=== PATIENT | female | born 1985 | race Caucasian/White ===

== ENCOUNTER 2024-10-14 20:44 | Observation (INO) | payer BC, MEDICAID, SELFPAY ==
[2024-10-14 20:48] VITALS: BP 139/83; PULSE 63; RESP 18; TEMP 36.4; O2SAT 96; BMI 42.0
[2024-10-14 21:06] VITALS: BP 107/84; PULSE 60; RESP 16; O2SAT 100
[2024-10-14 21:13] LABS: Basophils # 0.1 10^3/uL (0.0-0.1); Basophils % 0.3 %; Eosinophils # 0.1 10^3/uL (0.0-0.8); Eosinophils % 0.5 %; Hematocrit 45.1 % (36-47); Lymphocytes # 0.9 10^3/uL (0.8-4.8); Mean Corpuscular HGB Conc 33.3 g/dL (30-55); Mean Corpuscular Hemoglobin 29.5 pg (27-33); Mean Corpuscular Volume 88.6 fl (85-98); Mean Platelet Volume 9.3 fL (7.4-10.4); Monocytes # 0.4 10^3/uL (0.2-0.9); Monocytes % 2.5 %; Neutrophils # 14.04 10^3/uL (1.8-7.7); Neutrophils % 90.4 %; Nucleated Red Blood Cells % 0 %; Platelet Count 304 10^3/cmm (157-399); Red Blood Count 5.09 10^6/uL (3.85-5.65); White Blood Count 15.52 10^3/uL (3.29-11.43)
[2024-10-14 21:18] LABS: Bilirubin Urine Negative (Negative); Blood Urine Negative (Negative); Glucose Urine UA 3+ (Normal); Ketones Urine Negative (Negative); Leukocyte Esterase Urine Negative (Negative); Nitrate Urine Negative (Negative); Protein Urine Negative (Negative); Specific Gravity, Urine 1.022 (1.005-1.030); Urine Appearance Clear (CLEAR); Urine Color Yellow (Yellow); pH Urine 6.5 (5-7)
[2024-10-14] MEDS: ondansetron 2 mg/ML SDV 2 mL 8 MG IVP (21:19)
[2024-10-14 21:20] LABS: HCG, Serum Qual Negative (Negative)
[2024-10-14] MEDS: sodium chloride 0.9% 1,000 ML 999 ML IV ×2 (21:20→22:46)
--- NOTE | 2024-10-14 21:22 | ED_ITS ---
HPI - Nausea/Vomiting/Diarrhea 2 General: Chief complaint: Nausea/Vomiting/Diarrhea Stated complaint: burn when pee n/v new med Time Seen by Provider: 10/14/24 21:02 Source: patient Mode of arrival: ambulatory Limitations: no limitations History of Present Illness: Patient is a 39-year-old female who presents emergency department plaint of weakness for the past day or so. Also states that she feels like her blood sugar was low, she recently started taking old prescription of Trulicity for weight loss and since then has got increasingly weak. Also states she thinks she is having UTI due to dysuria and dark-colored urine. States that she is thrown up 3 times and is nauseous at this time. Vitals are within normal limits. Denying any pain, shortness of breath, or other symptoms at this time. She has no other pertinent past medical history to report. She also notes that over the past few days she has not been eating as much. 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 MD elicited complaint: nausea and vomiting Onset (ago): day(s) Associated nausea: Yes Associated abdominal pain: No Exacerbating factors: none Relieving factors: none Context: other (Recently took old prescription of Trulicity) Associated symtoms: Reports dysuria, fatigue and nausea; Denies chest pain, diaphoresis, dizziness, headache(s) or palpitations Related Data Allergies Allergy/AdvReac Type Severity Reaction Status Date / Time No Known Allergies Allergy Verified 10/14/24 20:54 Review of Systems 2 General: Reports: 10 or more systems reviewed and unremarkable except in HPI and below Const: Reports: change in appetite and fatigue; Denies: fever(s), chills, change in weight or diaphoresis ENMT: Denies: throat pain or hoarseness Card: Denies: chest pain, palpitations or lightheadedness Resp: Denies: dyspnea, productive cough or wheezing GI: Reports: nausea and vomiting; Denies: abdominal pain or diarrhea : Reports: dysuria; Denies: flank pain or difficulty voiding Musc: Denies: neck pain or back pain Skin/Breast: Denies: rash or new lesions Neuro: Denies: headache(s) or dizziness PENDING SALE TO [facility] ED 2 Female Reproductive History: Date of last menstrual period: 10/10/24 Physical Exam 2 Const: COMMON NORMALS: no acute distress, patient oriented x3, no limitations, healthy appearing, alert and well nourished GENERAL APPEARANCE: cooperative ORIENTATION/CONSCIOUSNESS: Yes awake HENMT: COMMON NORMALS: normocephalic, atraumatic, hearing grossly normal bilaterally, external ears normal, Normal external nose present, Normal nasal mucous membranes and turbinates present and moist oral mucous membranes HEAD & SCALP: normocephalic and atraumatic NOSE: Normal external nose present and Normal nasal mucous membranes and turbinates present EXTERNAL EAR: Yes external ears normal Eye: COMMON NORMALS: Equal, round and reactive pupils present, EOMs intact bilaterally, conjunctivae normal and normal visual saenz by confrontation C ONJUNCTIVA: Yes conjunctivae normal PUPIL: Yes Equal, round and reactive pupils present Neck/C-Spine: COMMON NORMALS: full ROM, supple, no meningeal signs and no JVD Resp: COMMON NORMALS: normal respiratory effort, No retractions, No use of accessory muscles and clear to auscultation bilaterally AUSCULTATION: clear to auscultation bilaterally, no crackles, no rales, no rhonchi and no wheezes Cardio: COMMON NORMALS: no JVD, regular rate, regular rhythm, S1 normal heart sound present, S2 normal heart sound present, No gallops present (Cardio), No clicks present (Cardio), No murmurs present (Cardio), No rub (Cardio) and Peripheral pulses 2+ throughout RATE: regular rate RHYTHM: regular rhythm HEART SOUNDS: S1 normal heart sound present and S2 normal heart sound present PERIPHERAL PULSES: Peripheral pulses 2+ throughout GI: COMMON NORMALS: Normal to inspection, nondistended, normoactive bowel sounds present, Soft to palpation, No hepatosplenomegaly present and no masses AUSCULTATION: Yes normoactive bowel sounds PALPATION: Yes Soft to palpation, Yes Tenderness to palpation present (GI) Details: RLQ, No Guarding due to palpation present (GI), No Rigid due to palpation and Yes No hepatosplenomegaly present RECTAL EXAM: deferred Extremity: COMMON NORMALS: normal to inspection and full ROM Neuro: COMMON NORMALS: patient oriented x3, moves all extremities, no focal motor deficits and no sensory deficits noted SENSORIUM/ORIENTATION: Yes alert MENINGEAL SIGNS: Yes no meningeal signs Skin: COMMON NORMALS: no rashes or lesions noted GENERAL SKIN EXAM: no rashes or lesions noted Course 2 Vital Signs: Vital signs: Vital Signs Temperature 97.6 F 10/14/24 20:48 Pulse Rate 69 10/14/24 22:30 Respiratory Rate 16 10/14/24 22:30 Blood Pressure 124/83 10/14/24 22:30 Pulse Oximetry 99 10/14/24 22:30 Oxygen Delivery Me thod Room Air 10/14/24 20:48 MDM - Nausea/Vomiting/Diarrhea Medical Decision Making This patient presented stating that she was feeling weak over the past couple of days and feeling she had a UTI. Her urinalysis did not show any signs of infection. On exam, there is nothing of remark and specifically there is no abdominal tenderness to palpation. With her history she did not report any vomiting or diarrhea of any kind, just stating that she felt crummy. Of note she did recently take an old Trulicity just prior to her symptom onset. On lab work here there was signs of leukocytosis with left shift. She was not . Metabolic panel was unremarkable. She notes minimal improvement after Zofran and fluids here. Her viral swab was also negative. I rechecked the patient, she is requesting another liter of fluids and we decided to go ahead and get abdominal pelvis CT that did show signs of an acute appendicitis. Did reexamine her and with deeper palpation she was tender in the right lower quadrant. I spoke with on-call general surgeon, Dr. Cantu, who agrees to accept the patient under his care will see them tomorrow. He is recommending Zosyn and Toradol at this time. Also given patient Reglan for nausea and informed her of plan, all other questions and concerns addressed. Lab Data 10/14/24 20:58 10/14/24 20:58 Radiology Impressions Abdomen/Pelvis CT 10/14/24 22:39 IMPRESSION: 1. Dilated fluid-filled proximal appendix. This could represent a mucocele and/or acute appendicitis. No evidence of rupture or pseudomyxoma peritonei. ADDENDUM: 10/14/24 [id number] THIS REPORT CONTAINS FINDINGS THAT MAY BE CRITICAL TO PATIENT CARE. The findings were verbally communicated via telephone conference with DOE FELIPE at 11:24 PM PLANISHING HAMMER OPERATOR on 10/14/2024. The findings were acknowledged and understood. Laboratory Results WBC 15.52 10^3/uL (3.29-11.43) H 10/14/24 20:58 RBC 5.09 10^6/uL (3.85-5.65) 10/14/24 20:58 Hgb 15.00 g/dL (11.27-16.99) 10/14/24 20:58 Hct 45.1 % (36-47) 10/14/24 20:58 MCV 88.6 fl (85-98) 10/14/24 20:58 MCH 29.5 pg (27-33) 10/14/24 20:58 MCHC 33.3 g/dL (30-55) 10/14/24 20:58 RDW 12.0 % (12.1-15.1) L 10/14/24 20:58 Plt Count 304 10^3/cmm (157-399) 10/14/24 20:58 MPV 9.3 fL (7.4-10.4) 10/14/24 20:58 Neut % (Auto) 90.4 % 10/14/24 20:58 Lymph % (Auto) 6.0 % 10/14/24 20:58 Mclennan % (Auto) 2.5 % 10/14/24 20:58 Eos % (Auto) 0.5 % 10/14/24 20:58 Baso % (Auto) 0.3 % 10/14/24 20:58 Neut # (Auto) 14.04 10^3/uL (1.8-7.7) H 10/14/24 20:58 Lymph # (Auto) 0.9 10^3/uL (0.8-4.8) 10/14/24 20:58 Mclennan # (Auto) 0.4 10^3/uL (0.2-0.9) 10/14/24 20:58 Eos # (Auto) 0.1 10^3/uL (0.0-0.8) 10/14/24 20:58 Baso # (Auto) 0.1 10^3/uL (0.0-0.1) 10/14/24 20:58 Nucleated RBC % (auto) 0 % 10/14/24:58 Nucleated RBCs # 0.0 /100WBC 10/14/24 20:58 Sodium 137 mmol/L (136-145) 10/14/24 20:58 Potassium 4.0 mmol/L (3.5-5.1) 10/14/24 20:58 Chloride 101 mmol/L (98-107) 10/14/24 20:58 Carbon Dioxide 24 mmol/L (22-29) 10/14/24 20:58 Anion Gap 16.0 (5-19) 10/14/24 20:58 BUN 13 mg/dL (6-20) 10/14/24 20:58 Creatinine 0.7 mg/dL (0.5-0.9) 10/14/24 20:58 GFR Calculation 94.2 mL/min (90-130) 10/14/24 20:58 Glucose 140 mg/dL (65-115) H 10/14/24 20:58 Calculated Osmolality 286 mOsm/kg (285-295) 10/14/24 20:58 Calcium 9.3 mg/dL (8.5-10.5) 10/14/24 20:58 Total Bilirubin 0.4 mg/dL (0.15-1.2) 10/14/24 20:58 AST 15 U/L (0-32) 10/14/24 20:58 ALT 17 U/L (0-33) 10/14/24 20:58 Alkaline Phosphatase 95 U/L (35-105) 10/14/24 20:58 Total Protein 7.1 g/dL (6.6-8.7) 10/14/24 20:58 Albumin 4.3 g/dL (3.5-5.2) 10/14/24 20:58 Globulin 2.8 g/dL (1.3-4.6) 10/14/24 20:58 Lipase 16 U/L (13-60) 10/14/24 20:58 HCG, Qual Negative (Negative) 10/14/24 20:58 Urine Color Yellow (Yellow) 10/14/24 21:15 Urine Appearance Clear (CLEAR) 10/14/24 21:15 Urine pH 6.5 (5-7) 10/14/24 21:15 Ur Specific [place] 1.022 (1.005-1.030) 10/14/24 21:15 Urine Protein Negative (Negative) 10/14/24 21:15 Urine Glucose (UA) 3+ (Normal) H 10/14/24 21:15 Urine Ketones Negative (Negative) 10/14/24 21:15 Urine Blood Negative (Negative) 10/14/24 21:15 Urine Nitrate Negative (Negative) 10/14/24 21:15 Urine Bilirubin Negative (Negative) 10/14/24 21:15 Urine Urobilinogen 1.0 mg/dL (Negative) 10/14/24 21:15 Ur Leukocyte Esterase Negative (Negative) 10/14/24 21:15 Urine RBC 0-4 /hpf (0-2) H 10/14/24 21:15 Urine WBC 0-4 /hpf (0-5) H 10/14/24 21:15 Ur Squamous Epith Cells 5-10 /hpf (0-5) H 10/14/24 21:15 Amorphous Sediment Not Reportable 10/14/24 21:15 Urine Bacteria Trace /hpf (NONE) 10/14/24 21:15 Influenza A (PCR) Negative (Negative) 10/14/24 21:35 Influenza Type B (PCR) Negative (Negative) 10/14/24 21:35 RSV (PCR) Negative (Negative) 10/14/24 21:35 SARS-CoV-2 (PCR) Negative (Negative) 10/14/24 21:35 No radiology studies performed this visit Discharge Plan Discharge Patient Disposition: Admitted As Inpatient Clinical Impression: Acute appendicitis Qualifiers: Acute appendicitis type: unspecified acute appendicitis type Qualified Code(s): K35.80 - Unspecified acute appendicitis Condition: Stable Coding Level of Care Code 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
[2024-10-14 21:26] LABS: Alanine Aminotransferase 17 U/L (0-33); Albumin Level 4.3 g/dL (3.5-5.2); Alkaline Phosphatase 95 U/L (35-105); Aspartate Amino Transferase 15 U/L (0-32); Blood Urea Nitrogen 13 mg/dL (6-20); Calcium 9.3 mg/dL (8.5-10.5); Carbon Dioxide 24 mmol/L (22-29); Chloride 101 mmol/L (98-107); Creatinine Clr Calc Pharmacy 115.1852; Globulin 2.8 g/dL (1.3-4.6); Glomerular Filtration Rate 94.2 mL/min (90-130); Glucose 140 mg/dL (65-115); Lipase 16 U/L (13-60); Osmolality Calculated 286 mOsm/kg (285-295); Sodium 137 mmol/L (136-145); Total Bilirubin 0.4 mg/dL (0.15-1.2); Total Protein 7.1 g/dL (6.6-8.7)
[2024-10-14 21:45] LABS: Add Urine Microscopic? YES; Bacteria Urine TRACE /hpf; RBC Urine 0-4 /hpf (0-2); UA Manual Slide Review YES; WBC Urine 0-4 /hpf (0-5)
[2024-10-14 22:16] LABS: Influenza A NEGATIVE (Negative); Influenza B NEGATIVE (Negative); Respiratory Syncytial Virus Ce NEGATIVE (Negative); SARS-CoV-2 PCR NEGATIVE (Negative)
[2024-10-14 22:30] VITALS: BP 124/83; PULSE 69; RESP 16; O2SAT 99
--- NOTE | 2024-10-14 22:39 | CTR_ITS ---
PROCEDURE INFORMATION: Exam: CT Abdomen And Pelvis With Contrast Exam date and time: 10/14/2024 10:51 PM Age: 39 years old Clinical indication: Nausea and vomiting; Additional info: Weakness, leukocytosis TECHNIQUE: Imaging protocol: Computed tomography of the abdomen and pelvis with contrast. Radiation optimization: All CT scans at this facility use at least one of these dose optimization techniques: automated exposure control; mA and/or kV adjustment per patient size (includes targeted exams where dose is matched to clinical indication); or iterative reconstruction. Contrast material: OMNI 350; Contrast volume: 100 ml; Contrast route: INTRAVENOUS (IV); COMPARISON: US OB >= 14 weeks fetus [id number] 11/04/2017 9:40 AM RADIATION DOSE METRICS: Total DLP (mGy-cm): 863.56 FINDINGS: Liver: Normal. No mass. Gallbladder and biliary ducts: Normal. No calcified stones. No ductal dilation. Pancreas: Normal. No ductal dilation. Spleen: Normal. No splenomegaly. Adrenal glands: Normal. No mass. Kidneys and ureters: Normal. No hydronephrosis. Stomach and bowel: Unremarkable. No obstruction. No mucosal thickening. Appendix: Dilated fluid-filled appendiceal base measuring up to 2.2 cm diameter. The mid appendix measures 9 mm and the distal appendix measures 2 mm. No periappendiceal fat stranding. Intraperitoneal space: Unremarkable. No free air. No significant fluid collection. Vasculature: Unremarkable. No abdominal aortic aneurysm. Lymph nodes: Unremarkable. No enlarged lymph nodes. Urinary bladder: Unremarkable as visualized. Reproductive: Unremarkable as visualized. Bones/joints: Unremarkable. No acute fracture. Soft tissues: Bilateral breast implants. Tiny fat containing umbilical hernia. CT/CT abdomen pelvis w con* [id number] IMPRESSION: 1. Dilated fluid-filled proximal appendix. This could represent a mucocele and/or acute appendicitis. No evidence of rupture or pseudomyxoma peritonei.
[2024-10-14] MEDS: iohexol 350 mg/mL 500 mL Btl (per mL) IV (22:57)
[2024-10-14] MEDS: metoclopramide 5 mg/mL SDV 2 mL 10 MG IVP (23:35)
[2024-10-14] MEDS: piperacillin-tazobactam 3.375 GM in sodium chloride 0.9% (plus) 50 ML IV (23:35)
[2024-10-14] MEDS: ketorolac 30 mg/mL INJ IVP (23:35)
[2024-10-14 23:39] VITALS: PULSE 72; RESP 18; O2SAT 97
[2024-10-15] VITALS (20 sets, daily range): BP systolic 110–123; BP diastolic 52–90; PULSE 68–94; RESP 14–19; TEMP 36.3–37.3; O2SAT 92–98; BMI 42.5
[2024-10-15 00:01] LABS: Glucose Point of Care 61 mg/dL (70-110)
[2024-10-15] MEDS: LORazepam 2 mg/mL INJ 1 mL 1 MG IVP (01:11)
[2024-10-15] MEDS: morphine 4 mg/mL SDV 1 mL IVP (01:12)
[2024-10-15 06:42] LABS: Glucose Point of Care 65 mg/dL (70-110)
[2024-10-15] MEDS: ketorolac 30 mg/mL INJ 15 MG IVP (06:42)
--- NOTE | 2024-10-15 06:47 | P.HP_ITS ---
Providers/Chief Complaint 2 Admitting Physician: Roberth Day MD Primary Care Provider: Shane Chase MD Chief Complaint: burn when pee n/v new med History of Present Illness Bernadine Loving is a 39 year old female Who presents with malaise, nausea vomiting right lower quadrant pain over the last 48 hours. Workup done in the ER show evidence of a white count of 15, while she did not have severe abdominal pain due to patient's symptoms a CT scan was done and shows evidence of possible acute appendicitis and an associated possible appendiceal mucocele. I was consulted for this finding. Review of Systems 2 General: Reports: 10 or more systems reviewed and unremarkable except in HPI and below Medications/Allergies Allergies Allergy/AdvReac Type Severity Reaction Status Date / Time No Known Allergies Allergy Verified 10/14/24 20:54 PFSH Acute 2 Female Reproductive History: Date of last menstrual period: 10/10/24 Vitals/I&O/Wt Last Vital Signs Temp 97.6 F 10/14/24 20:48 Pulse 82 10/15/24 04:00 Resp 14 10/15/24 04:00 BP 118/79 10/15/24 01:58 Pulse Ox 96 10/15/24 04:00 O2 Del Method Room Air 10/14/24 20:48 10/14/24 10/14/24 10/15/24 14:59 22:59 06:59 Intake Total 1000 / 1000 1050 / 2050 Balance 1000 / 1000 1050 / 2050 Weight last 48 hrs Weight 215 lb Physical Exam 2 Narrative: General : Patient is well developed , no acute distress, oriented x3 Head : Normal cephalic, a-traumatic. Nose : Mucous membranes are without erythema. Lungs : Equal chest rise bilaterally, no use of accessory muscles, trachea is midline. CV : Rate and rhythm are normal. Abdomen : Soft, There is mild tenderness in the right lower quadrant, no peritoneal signs at the moment Extremities : No edema. Upper extremities are normal bilaterally. Back : non-tender to palpation, no CVA tenderness. Data 10/14/24 20:58 10/14/24 20:58 A&P Assessment and plan (1) Acute appendicitis: Qualifiers: Acute appendicitis type: unspecified acute appendicitis type Qualified Code(s): K35.80 - Unspecified acute appendicitis Plan After complete history, physical examination and review of all available clinical data the following is my assessment. Patient presentation is likely consistent with acute appendicitis with a possible associated appendiceal mucocele. I have discussed with the patient the possibility of surgery. I have offered a laparoscopic, possible open appendectomy. I have explained that in her case there is also a chance that we need to proceed with ileocecectomy if the mucocele is too close to the base of the appendix. I discussed all recent benefits of the procedure procedure including the risks of bleeding, infection, hernia formation, need to conversion to open procedure, injury to surrounding structures including the small bowel mesenteric vessels: Ureter and blood vessels in the pelvis. I explained that there is a reasonable hernia that will be increased if we do an open procedure. In the case of ileocecectomy there is a risk of anastomotic leak. I have also explained the risks of intra-abdominal abscess and the risks of proliferation of mucus in the case of perforation of the mucocele. Patient shows understanding she agrees to proceed. Case will be scheduled for the first available OR time. In the interim patient will receive IV antibiotics IV fluids and pain control she will remain n.p.o. until the time of surgery. PDMP PDMP Reviewed: Not Reviewed Attestations 2 Medical Necessity Statement*: Patient will likely require 24 hours of hospital stay. Coding Level of Care Code Acute Code for [facility] Diagnoses Acute appendicitis K35.80 Acute appendicitis type: unspecified acute appendicitis type
[2024-10-15] MEDS: dextrose 5%-sod chloride 0.45% 1,000 ML 75 ML IV (07:03)
[2024-10-15 07:25] LABS: Basophils # 0.1 10^3/uL (0.0-0.1); Basophils % 0.4 %; Eosinophils # 0.1 10^3/uL (0.0-0.8); Eosinophils % 0.8 %; Hematocrit 41.9 % (36-47); Lymphocytes # 2.1 10^3/uL (0.8-4.8); Mean Corpuscular HGB Conc 32.9 g/dL (30-55); Mean Corpuscular Hemoglobin 29.7 pg (27-33); Mean Corpuscular Volume 90.3 fl (85-98); Mean Platelet Volume 9.3 fL (7.4-10.4); Monocytes # 0.7 10^3/uL (0.2-0.9); Monocytes % 5.9 %; Neutrophils # 8.78 10^3/uL (1.8-7.7); Neutrophils % 74.6 %; Nucleated Red Blood Cells % 0 %; Platelet Count 274 10^3/cmm (157-399); Red Blood Count 4.64 10^6/uL (3.85-5.65); Red Cell Distribution Width 12.2 % (12.1-15.1); White Blood Count 11.77 10^3/uL (3.29-11.43)
[2024-10-15] MEDS: piperacillin-tazobactam 3.375 GM in sodium chloride 0.9% (plus) 50 ML IV ×2 (09:36→17:10)
[2024-10-15] MEDS: scopolamine 1 mg PATCH 1 PATCH TRANSDERMA (13:31)
--- NOTE | 2024-10-15 13:46 | ANES.PREANE2 ---
Pre-Anesthetic Assessment Height/Weight: Height 5 ft Weight 217 lb 8 oz Temp Pulse Resp BP Pulse Ox O2 Del Method 97.4 F L 87 18 113/90 97 Room Air 10/15/24 12:32 10/15/24 12:32 10/15/24 12:32 10/15/24 12:32 10/15/24 12:32 10/15/24 12:32 Preop Diagnosis: acute appendicitis Operation Date: 10/15/24 13:00 Proposed Procedures p Laparoscopic Appendectomy(Not Applicable) - Abdulaziz Cantu MD Was Beta [place] taken within 24 hours: N/A Was Clonidine taken within 24 hours: N/A Last intake: Intake Last Liquid Date 10/15/24 Last Liquid Time 01:00 Last Solid Date 10/13/24 Last Solid Time 18:00 Social Tobacco and No alcohol Exam alert, oriented x 3, clear to auscultation bilaterally and regular rate & rhythm Airway Submandibular: within normal limits Cervical ROM: within normal limits Mallampati: Class II Dentition: full Comments: Comments: Chipped tooth on the back right top molar Anesthetic Plan ASA status: 3 Anesthesia: General Other: No prior issues with anesthesia NPO since yesterday ADHD on Adderall Patient takes chronic Trulicity for weight loss. Last taken 4 days ago Vapes nicotine and marijuana Denies any cardiac issues Labs reviewed and acceptable for procedure METs greater than 4 Plan for GETA with RSI Medications/Allergies Home Medications ?Medication ?Instructions ?Recorded ?Confirmed ?Last Taken ?Type dextroamphetamine-amphetamine ER 1 cap PO DAILY 10/15/24 10/15/24 Unknown History 25 mg 24hr capsule,extend release escitalopram oxalate 10 mg tablet 10 mg PO DAILY 10/15/24 10/15/24 Unknown History Allergies Allergy/AdvReac Type Severity Reaction Status Date / Time No Known Allergies Allergy Verified 10/14/24 20:54 Current Medications Generic Name Dose Route Start Last Admin Trade Name Freq PRN Reason Stop Dose Admin Piperacillin Sod/Tazobactam 50 mls @ 12.5 mls/hr 10/15/24 08:00 10/15/24 13:14 Sod 3.375 gm/ Sodium Chloride IV Infused Q8H SAM Infusion Protocol Dextrose/Sodium Chloride 1,000 mls @ 75 mls/hr 10/15/24 06:45 10/15/24 07:03 Dextrose 5%-Sod Chloride 0.45% IV 75 mls/hr .[id number] SAM Administration Ketorolac Tromethamine 15 mg 10/15/24 06:00 10/15/24 12:14 Ketorolac 30 Mg/Ml Inj IVP 10/20/24 05:59 Not Given Q6H SAM PFSH Anesthesia Female Reproductive History Date of last menstrual period: 10/10/24 Data Anesthesia 10/15/24 07:19 10/14/24 20:58 Short CBC 10/14/24 10/15/24 Range/Units 20:58 07:19 WBC 15.52 H 11.77 H (3.29-11.43) 10^3/uL Hgb 15.00 13.80 (11.27-16.99) g/dL Hct 45.1 41.9 (36-47) % MCV 88.6 90.3 (85-98) fl Plt Count 304 274 (157-399) 10^3/cmm Neut % (Auto) 90.4 74.6 % Neut # (Auto) 14.04 H 8.78 H (1.8-7.7) 10^3/uL BMP 10/14/24 20:58 Sodium 137 Potassium 4.0 Chloride 101 Carbon Dioxide 24 BUN 13 Creatinine 0.7 Glucose 140 H Calcium 9.3 Liver Function 10/14/24 Range/Units 20:58 Total Bilirubin 0.4 (0.15-1.2) mg/dL AST 15 (0-32) U/L ALT 17 (0-33) U/L Alkaline Phosphatase 95 (35-105) U/L Albumin 4.3 (3.5-5.2) g/dL Urine 10/14/24 Range/Units 21:15 Urine Color Yellow (Yellow) Urine Appearance Clear (CLEAR) Urine pH 6.5 (5-7) Ur Specific [place] 1.022 (1.005-1.030) Urine Protein Negative (Negative) Urine Glucose (UA) 3+ H (Normal) Urine Ketones Negative (Negative) Urine Nitrate Negative (Negative) Urine Bilirubin Negative (Negative) Ur Leukocyte Esterase Negative (Negative) Urine RBC 0-4 H (0-2) /hpf Urine WBC 0-4 H (0-5) /hpf COVID Results 10/14/24 21:35 SARS-CoV-2 (PCR) Negative Cardiac Studies: No Data to Display
[2024-10-15] MEDS: BUPivacaine 0.25% INJ 10 mL INJECTION (14:52)
[2024-10-15] MEDS: lidocaine-epi 1% 20 mL INJ INJECTION (14:53)
--- NOTE | 2024-10-15 15:29 | PM.OP ---
Operative Report Date of procedure: October 15, 2024 Pre-op diagnosis: Acute appendicitis Post-op diagnosis: Same Post-op findings: There were significant adhesions from the omentum to the anterior abdominal wall occupying the lower abdomen at the level of the midline all the way up to the umbilicus. Appendix was mildly distended near the base, with no obvious evidence of mucocele on visual examination. I was able to dissect all the way down to the base of the appendix and transected appendix directly where it joined to the cecum. Procedure done: Laparoscopic appendectomy, laparoscopic lysis of additions Specimens removed/disposition: Appendix Surgeon: Abdulaziz Cantu MD Charging Operator: JESE OR STaff Estimated blood loss: 5cc Brief History: This is a 39-year-old female who presented to the hospital with right lower quadrant abdominal pain nausea vomiting awake and a 15. CT scan was done in the ER showing evidence of acute appendicitis and possible appendiceal mucocele. After discussion of all recent benefits documented my preop note we decided to proceed to the OR. Procedure: Patient was brought into the OR, she was placed in the supine position. General anesthesia was given. The abdomen was prepped and draped in the usual sterile fashion. Timeout was conducted. The abdomen was accessed via left upper quadrant 5 mm Optiview trocar, initial laparoscopy showed no evidence of visceral injury during entry. Upon immediate entry there was evidence of extensive adhesions of the omentum to the anterior abdominal wall starting at the level of the umbilicus and going all the way down to the pelvis, this was obscuring the surgical site and therefore we decided to proceed with lysis of additions. I placed an extra trocar in the right upper quadrant, I then used the LigaSure to carefully lyse the adhesions from the anterior abdominal wall. With careful dissection I was able to take down all the adhesions. I then placed 2 mm trocar in the infraumbilical location under direct visualization and the next 5 mm trocar in the suprapubic region under direct visualization. The patient was placed in a steep Trendelenburg position with the left side down. The appendix was localized in the right lower quadrant. Very minimal inflammation of the appendix was noted. There is no visual evidence of the possible mucocele described in imaging, the appendix was slightly dilated near the base but other than that appeared normal. I proceeded to take down the mesoappendix carefully with LigaSure I did this from the tip of the appendix all the way down to the base of the appendix. I then proceeded to clear the base of the appendix to allow for stapling ensuring that no residual appendix is left behind. The base appeared healthy. I then proceeded to transect the appendix at the base using a 45 mm blue load Endo SHAMA stapler, once the appendix was transected there was no evidence of bleeding from the staple line, the staple line was completely flush with the cecum, indicating that the complete appendix had been removed. The specimen was retrieved with an Endo Catch bag and removed from the abdomen via the infraumbilical trocar site. Hemostasis was verified. The omentum was pulled into the right lower quadrant to cover the staple line. I then remove the infraumbilical trocar site and closed the trocar site with a #0 Vicryl in a Dimitry-Bonny suture passer under direct visualization. The suprapubic and right upper quadrant trocar was also removed under direct visualization. The left upper quadrant trocar was used to evacuate the pneumoperitoneum and subsequently removed. At the end of the procedure all counts were correct. The patient tolerated well the procedure was transferred to PACU in stable condition.
[2024-10-15] MEDS: fentaNYL 50 mcg/mL INJ 2mL IVP (15:53)
[2024-10-15] MEDS: oxyCODONE 5 mg IR Tab/Cap PO (17:24)
--- NOTE | 2024-10-15 20:52 | PC.NURSE ---
Pt left with , discharge instructions given, questions answered. IV removed.
[2024-10-16 09:29] LABS: Glucose Point of Care 106 mg/dL (70-110)
== END 2024-10-15 20:53 | disposition home or self-care (01) ==
LOC: ER 10-15 00:08 → ER IP 10-15 04:22 → MEDSURG 10-15 05:39 → ER IP 10-15 13:11
PROVIDERS: Emergency Medicine; Admitting Provider Internal Medicine; Emergency Provider Physician Assistant; PCP Family Medicine; Visit Provider Surgery
PROC: 0DTJ4ZZ Resection of Appendix, Percutaneous Endoscopic Approach (ICD-10-PCS; CPT 44970; principal; 2024-10-15 13:00)
PROC: (CPT 44970; 2024-10-15 13:00)
DX: K35.80 Unspecified acute appendicitis (principal); K66.0 Peritoneal adhesions (postprocedural) (postinfection); Z11.52 Encounter for screening for COVID-19
CPT/HCPCS: 44970; 36415; 36416; 74177; 80053; 81001; 82962; 83690; 84703; 85025; 87637; 88304; 96365; 96375; 96376; 99285; A4216; G0378; J1100; J1171; J1885; J2060; J2250; J2270; J2405; J2543; J2765; J3010; J3490; J7030; J7799

== ENCOUNTER 2024-10-24 12:43 | Emergency (ER) | payer MEDICAID, SELFPAY ==
[2024-10-24 12:51] VITALS: BP 135/76; PULSE 66; RESP 17; TEMP 36.5; O2SAT 97; BMI 42.3
--- NOTE | 2024-10-24 13:01 | CTR_ITS ---
PROCEDURE INFORMATION: Exam: CT Head Without Contrast Exam date and time: 10/24/2024 1:24 PM Age: 39 years old Clinical indication: Pain; Headache; Additional info: Headache x 3 hours TECHNIQUE: Imaging protocol: Computed tomography of the head without contrast. Axial, coronal and sagittal reformatted images were created and reviewed. Radiation optimization: All CT scans at this facility use at least one of these dose optimization techniques: automated exposure control; mA and/or kV adjustment per patient size (includes targeted exams where dose is matched to clinical indication); or iterative reconstruction. COMPARISON: No relevant prior studies available. RADIATION DOSE METRICS: Total DLP (mGy-cm): 1009.68 FINDINGS: Brain: No CT evidence of acute intracranial hemorrhage or acute territorial infarction. No significant mass effect or midline shift. Basal cisterns patent. Cerebral ventricles: Normal in size and configuration. Paranasal sinuses: Unremarkable. No fluid levels. Mastoid air cells: Grossly unremarkable. Bones: Unremarkable. No acute fracture. Soft tissues: Grossly unremarkable. CT/CT head wo con* [id number] IMPRESSION: No CT evidence of acute intracranial pathology.
--- NOTE | 2024-10-24 13:03 | W.ED.HA ---
HPI - Headache General: Chief Complaint: Headache Stated Complaint: n/v, 9 days post op Time Seen by Provider: 10/24/24 12:48 Source: patient History of Present Illness: Patient is a nontoxic 39-year-old female who presents to the ER with complaints of a headache. She states her headache is isolated primarily to the left side of her head behind her left eye. She states she woke up this morning and thought she may have had a very mild headache however symptoms became acutely worse at around 11:30 AM this morning just about an hour and 1/2 to 2 hours before arrival. She has had some nausea and vomiting with photophobia. No exacerbating or alleviating factors. She has had headaches in the past but states this feels worse than her usual headache. No fevers or chills. She is a little over 1 week postop from an appendectomy but denies any complications or problems associated with that. No neck pain or stiffness. MD elicited complaint: headache Onset (ago): hour(s) (3) Onset description: gradually Location: left Severity: moderate Quality & Timing: throbbing and constant Relieving factors: nothing Associated symptoms: Reports nausea and vomiting; Deny chest pain, fever(s) or rash Related Data Home Medications ?Medication ?Instructions ?Recorded ?Confirmed dextroamphetamine-amphetamine ER 1 cap PO DAILY 10/15/24 10/24/24 25 mg 24hr capsule,extend release escitalopram oxalate 10 mg tablet 10 mg PO DAILY 10/15/24 10/24/24 Previous Rx's ?Medication ?Instructions ?Recorded polyethylene glycol 3350 17 gram 17 g PO DAILY 14 days #14 ea 10/15/24 oral powder packet (Miralax) Allergies Allergy/AdvReac Type Severity Reaction Status Date / Time No Known Allergies Allergy Verified 10/14/24 20:54 Review of Systems Const: Denies: fever(s) or chills Card: Denies: chest pain Resp: Denies: dyspnea GI: Reports: nausea and vomiting; Denies: abdominal pain Skin/Breast: Denies: rash Neuro: Reports: headache(s) Physical Exam Const: COMMON NORMALS: no acute distress, average body habitus, alert and well nourished GENERAL APPEARANCE: cooperative ORIENTATION/CONSCIOUSNESS: Yes awake HENMT: COMMON NORMALS: normocephalic and atraumatic HEAD & SCALP: normocephalic and atraumatic Eye: COMMON NORMALS: conjunctivae normal CONJUNCTIVA: Yes conjunctivae normal Neck/C-Spine: GENERAL: Yes normal visual inspection Resp: COMMON NORMALS: normal respiratory effort, No retractions and No use of accessory muscles Cardio: COMMON NORMALS: regular rhythm and Peripheral pulses 2+ throughout RHYTHM: regular rhythm PERIPHERAL PULSES: Peripheral pulses 2+ throughout GI: COMMON NORMALS: Soft to palpation and non-tender PALPATION: Yes Soft to palpation OTHER: Abdomen soft and nondistended. Incisions are clean dry and intact. No tenderness. No guarding or rebound. Extremity: COMMON NORMALS: full ROM and no pedal edema Neuro: COMMON NORMALS: no focal motor deficits SENSORIUM/ORIENTATION: Yes alert Skin: COMMON NORMALS: no rashes or lesions noted GENERAL SKIN EXAM: no rashes or lesions noted Course Vital Signs: Vital signs: Vital Signs Temperature 97.7 F 10/24/24 12:51 Pulse Rate 66 10/24/24 12:51 Respiratory Rate 17 10/24/24 12:51 Blood Pressure 135/76 10/24/24 12:51 Pulse Oximetry 97 10/24/24 12:51 Oxygen Delivery Me thod Room Air 10/24/24 12:51 MDM - Headache Medical Decision Making Nontoxic 39-year-old female who presents with a headache that seems consistent with a migraine headache starting this morning. Head CT was obtained and is negative for acute findings. No focal neurologic deficits. Patient was given a liter of IV fluids, Compazine and Benadryl and a dose of Toradol. On recheck she states she feels significantly better and is eager for discharge home. Patient was updated on findings and plan for discharge and is comfortable with such. Differential Diagnosis Likely migraine, tension headache and headache Lab Data Radiology Impressions Head CT 10/24/24 13:01 IMPRESSION: No CT evidence of acute intracranial pathology. All radiology interpretation(s) finalized by discharge Discharge Plan Discharge Patient Disposition: Home Clinical Impression: Headache Condition: Stable Prescriptions: No Action dextroamphetamine-amphetamine 25 mg capsule,extended release 24hr 1 cap PO DAILY escitalopram oxalate 10 mg tablet 10 mg PO DAILY polyethylene glycol 3350 [Miralax] 17 gram powder in packet 17 g PO DAILY 14 Days Qty: 14 0RF Discharge Orders: Discharge ED (Routine); Ordered 10/24/24 Ordered By: Kirit Siddiqui Referrals: Shane Chase MD [Primary Care Provider] - Discharge Activity: Increase activity as tolerated Patient Instructions: Acute Headache (DC), Opioid Safety, Pain Management Activity Restrictions/Additional Instructions: Drink plenty of fluids to stay hydrated. Follow-up with your PCP for recheck. Return to the ER for any new or worsening symptoms or any other concerns. Print Language: Algerian Coding Level of Care Code ED [employer] for [employer]
[2024-10-24] MEDS: sodium chloride 0.9% 1,000 ML 999 ML IV (13:17)
[2024-10-24] MEDS: prochlorperazine 10 mg/2 mL Inj IVP (13:19)
[2024-10-24] MEDS: ketorolac 30 mg/mL INJ 15 MG IVP (13:20)
[2024-10-24] MEDS: diphenhydrAMINE 50 mg/mL SDV 1mL 25 MG IVP (13:20)
== END 2024-10-24 14:50 | disposition home or self-care (01) ==
PROVIDERS: Emergency Provider Student in an Organized Health Care Education/Training Program; PCP Family Medicine
DX: R51.9 Headache, unspecified (principal); Z98.890 Other specified postprocedural states
CPT/HCPCS: 36415; 70450; 96361; 96374; 96375; 99285; J0780; J1200; J1885; J7030